=== PATIENT | male | born 1975 | race Caucasian/White ===

== ENCOUNTER 2023-01-07 10:11 | Emergency (ER) | payer BC ==
[~2023-01-07] VITALS: Ht 175.3 cm; Wt 81.6 kg
--- NOTE | 2023-01-07 10:50 | NUR ---
pt seen by dr bellamy
--- NOTE | 2023-01-07 11:00 | NUR ---
PHLEB ABLE TO DRAW BLOOD
[2023-01-07 11:17] LABS: BASOPHILS # (AUTO) 0.1 K/uL (0.0-0.2); BASOPHILS % (AUTO) 0.7 % (0.0-2.0); HEMATOCRIT 37 % (39-51); HEMOGLOBIN 12.3 g/dL (13.5-17.5); LYMPHOCYTES # (AUTO) 1.2 K/uL (0.8-4.8); MEAN CORPUSCULAR HGB CONC 33 g/dl (31.0-36.0); MEAN CORPUSCULAR VOLUME 91 fL (80-96); MONOCYTES # (AUTO) 1.5 K/uL (0.1-1.30); MONOCYTES % (AUTO) 9.8 % (2.0-12.0); NEUTROPHILS # (AUTO) 11.8 K/uL (1.8-8.9); NEUTROPHILS % (AUTO) 79.5 % (43.0-81.0); PLATELET COUNT (AUTO) 360 K/uL (150-450); RED BLOOD CELL COUNT(AUTO) 4.08 MIL/uL (4.5-6.0); WHITE BLOOD COUNT (AUTO) 14.8 K/uL (4.3-11.0)
--- NOTE | 2023-01-07 11:22 | NUR ---
called radiology for ultrasound, will follow-up with the tech per rad
[2023-01-07 11:29] LABS: CALCIUM, SERUM 8.8 mg/dL (8.5-10.1); CREATININE 1.4 mg/dL (0.6-1.3); POTASSIUM 4.1 mmol/L (3.5-5.1)
--- NOTE | 2023-01-07 12:24 | NUR ---
TECH AT BEDSIDE FOR ULTRASOUND
[2023-01-07] MEDS ORDERED: CEPH500C2 PO (12:50)
[2023-01-07] MEDS ORDERED: SULF1TAB48 PO (12:50)
[2023-01-07] MEDS ORDERED: LIDOCAINE 1% INJ 50 ML MDV IJ ONE (13:37)
[2023-01-07] MEDS ORDERED: CEFTRIAXONE 1 G VIAL ONE (13:37)
--- NOTE | 2023-01-07 13:50 | NUR ---
rocephin given left deltoid im as indicated, ana well
--- NOTE | 2023-01-07 13:52 | NUR ---
Patient discharged to detox facility accompanied by mihir (home visit field care manager) in stable condition. Written and verbal after care instructions given. Patient verbalizes understanding of instruction.
[2023-01-07 13:54] VITALS: BP 110/63
[2023-01-07] MEDS ORDERED: CEFTRIAXONE 1 G VIAL IM ONE (14:00)
== END 2023-01-07 13:54 ==
LOC: ER 10:23
DX: L03.116 Cellulitis of left lower limb (principal); I10 Essential (primary) hypertension; J45.909 Unspecified asthma, uncomplicated; K21.9 Gastro-esophageal reflux disease without esophagitis; G62.9 Polyneuropathy, unspecified; G89.29 Other chronic pain; F20.9 Schizophrenia, unspecified; F17.200 Nicotine dependence, unspecified, uncomplicated; Z79.899 Other long term (current) drug therapy; Z88.2 Allergy status to sulfonamides; Z88.8 Allergy status to other drugs, medicaments and biological substances
CPT/HCPCS: 99285; 93971; 96372; 85025; 80048; 36415; 85730; J3490; J0696